=== PATIENT | female | born 1970 | race Caucasian/White ===

== ENCOUNTER → 2016-07-28 | Day surgery (SDC) | payer OTHER ==
[2016-07-26 13:21] VITALS: Ht 154.9 cm; Wt 61.8 kg
[~2016-07-28] VITALS: Ht 154.9 cm; Wt 61.8 kg
[~2016-07-28] MED LIST: CHOL100010 PO; LEVO25TA PO; LIDOCAINE HCL 2% 2 ML VIAL (20MG/ML) ONE; LINA1CAP PO; PROPOFOL IV EMULSION 10 MG/ML 20 ML VIAL IV ONE; SODIUM CHLORIDE 0.9% 500ML 500 ML IV ONE; SUMA50TA15 PO; VERA240T20 PO
--- NOTE | 2016-07-28 11:43 | Endo History and Physical ---
History & Physical Date of Service: Jul 28, 2016. Chief Complaint: Screening Referring Physician: Frederick History of Present Illness 46 yo CF who presents for screening colonoscopy. Past Medical History Hypertension Past Surgical History Hx Cardiac Surgery: No Hx Internal Defibrillator: No Hx Pacemaker: No Hx Abdominal Surgery: Yes (PARTIAL HYSTER, TUBAL LIGATION) Hx of Implantable Prosthesis: No Hx Post-Op Nausea and Vomiting: Yes Hx Cancer Surgery: No Hx Thoracic Surgery: No Hx Orthopedic: No Hx Urinary Tract Surgery: No Family History None Social History Smoking Status: Never Smoker Hx Substance Use: No Hx Alcohol Use: No Allergies Coded Allergies: BEE STING (Verified Allergy, Unknown, SWELLING AT SITE, 07/26/16) NO KNOWN DRUG ALLERGIES (Verified Allergy, Unknown, ., 07/26/16) Current Medications Reported Home Medications Medications Dose Route/Sig Max Daily Dose Days Date Category Linzess (Linaclotide) 145 Mcg Cap 1 Tab PO QPM 07/26/16 Reported Vitamin D (Cholecalciferol) 1,000 Unit Tab 1 Tab PO HS 07/26/16 Reported Synthroid (Levothyroxine Sodium) 25 Mcg Tab 25 Mcg PO QAM 07/26/16 Reported Calan Sr Ext Rel (Verapamil HCl) 240 Mg Tabcr 240 Mg PO HS 07/26/16 Reported Imitrex (Sumatriptan Succinate) 50 Mg Tab 50 Mg PO UD PRN 06/07/15 Reported Vital Signs Weight (Kilograms): 61.82 Height (Feet): 5 Height (Inches): 1 Date Time Temp Pulse Resp B/P Pulse Ox O2 Delivery O2 Flow Rate FiO2 07/28/16 11:07 36.7 69 18 162/86 99 Room Air Physical Exam General Appearance: WD/WN, no apparent distress Respiratory/Chest: Auscultation: breath sounds normal Cardiovascular: Heart Auscultation: RRR Abdomen: Bowel Sounds: normal Inspection & Palpation: soft, non-distended, no tenderness, guarding & rebound Assessment and Plan Assessment: 46 yo CF who presents for screening colonoscopy. Plan: Proceed with colonoscopy.
--- NOTE | 2016-07-28 12:06 | GI REPORT ---
Procedure Date: 07/28/2016 11:49 AM Procedure: Colonoscopy Indications: Screening for colorectal malignant neoplasm Medicines: Monitored Anesthesia Care Complications: No immediate complications. Estimated Blood Loss: Estimated blood loss: none. Procedure: Pre-Anesthesia Assessment: - Prior to the procedure, a History and Physical was performed, and patient medications and allergies were reviewed. The patient's tolerance of previous anesthesia was also reviewed. The risks and benefits of the procedure and the sedation options and risks were discussed with the patient. All questions were answered, and informed consent was obtained. Prior Anticoagulants: The patient has taken no previous anticoagulant or antiplatelet agents. ASA Grade Assessment: I - A normal, healthy patient. After reviewing the risks and benefits, the patient was deemed in satisfactory condition to undergo the procedure. After I obtained informed consent, the scope was passed under direct vision. Throughout the procedure, the patient's blood pressure, pulse, and oxygen saturations were monitored continuously. The scope was introduced through the anus and advanced to the terminal ileum. The colonoscopy was performed without difficulty. The patient tolerated the procedure well. The quality of the bowel preparation was good. The terminal ileum, ileocecal valve, appendiceal orifice, and rectum were photographed. Findings: Non-bleeding internal hemorrhoids were found during retroflexion. The hemorrhoids were small. The exam was otherwise without abnormality. Impression: - Non-bleeding internal hemorrhoids. - The examination was otherwise normal. - No specimens collected. Recommendation: - Resume previous diet. - Continue present medications. - Repeat colonoscopy in 10 years for surveillance. - Return to primary care physician as previously scheduled. Jer Feliciano DO 07/28/2016 12:05:36 PM This report has been signed electronically. Note Initiated On: 07/28/2016 11:49 AM
--- NOTE | 2016-07-28 12:06 | Discharge Instructions ---
Endoscopy Patient Instructions Date / Procedure(s) Performed Jul 28, 2016. Colonoscopy Allergy Information Coded Allergies: BEE STING (Verified Allergy, Unknown, SWELLING AT SITE, 07/26/16) NO KNOWN DRUG ALLERGIES (Verified Allergy, Unknown, ., 07/26/16) Discharge Date / Findings Jul 28, 2016. Internal hemorrhoids Medication Instructions OK to resume all medications today as prescribed Reported Home Medications Medications Dose Route/Sig Max Daily Dose Days Date Category Linzess (Linaclotide) 145 Mcg Cap 1 Tab PO QPM 07/26/16 Reported Vitamin D (Cholecalciferol) 1,000 Unit Tab 1 Tab PO HS 07/26/16 Reported Synthroid (Levothyroxine Sodium) 25 Mcg Tab 25 Mcg PO QAM 07/26/16 Reported Calan Sr Ext Rel (Verapamil HCl) 240 Mg Tabcr 240 Mg PO HS 07/26/16 Reported Imitrex (Sumatriptan Succinate) 50 Mg Tab 50 Mg PO UD PRN 06/07/15 Reported Provider Instructions Activity Restrictions - No exercising or heavy lifting for 24 hours. - Do not drink alcohol the day of the procedure. - Do not drive a car or operate machinery until the day after the procedure. - Do not make any important decisions or sign important papers in 24 hours after the procedure. Following Day: - Return to full activity which may include returning to work/school. Diet Start your diet with liquids and light foods (jello, soup, juice, toast). Then eat your usual diet if not nauseated. Treatment For Common After Affects For mild abdominal pain, bloating, or excessive gas: - Rest - Eat lightly - Lie on right side Follow-Up Information Follow-up with [facility] as scheduled Anesthesia Information What You Should Know You have had a procedure that required some medicine to reduce anxiety and discomfort. This treatment is called moderate sedation. After receiving the treatment, you may be sleepy, but you will be able to breathe on your own. The effects of the treatment may last for several hours. Follow these instructions along with Activity/Diet recommendations noted above: * Do NOT do anything where dizziness or clumsiness would be dangerous. * Rest quietly at home today, then you can be up and about tomorrow. * Have a responsible person stay with you the rest of today. * You may have had an I.V. today. If so, you may take the dressing off later today. Recommendations Call your doctor if: * Trouble breathing * Continuous vomiting for more than 24 hours * Temperature above 101 degrees * Severe abdominal pain or bloating * Pain not relieved by pain medicine ordered * There is increased drainage or redness from any incision * A large amount of rectal bleeding greater than 2-3 tablespoons. (If you had a polyp/s removed or have hemorrhoids, a small amount of blood - from the rectum is to be expected.) * You have any unanswered questions or concerns. IN THE EVENT OF A SERIOUS EMERGENCY, GO TO THE NEAREST EMERGENCY ROOM Your discharge instructions were prepared by provider Jer Feliciano. Patient Instructions Signature Page Dee Vasquez Patient (or Guardian) Signature/Date: I have read and understand the instructions given to me by my caregivers. Caregiver/RN/Doctor Signature/Date: The above-named patient and/or guardian has received patient instructions on this date. + Original Patient Signature Page (only) stays with chart. Please make copy for patient.
--- NOTE | 2016-07-28 12:17 | Anesthesiology Progress Note ---
Anesthesia Post Op Note Date & Time Jul 28, 2016 at 12:16 Vital Signs Pain Intensity: 4 Vital Signs Past 12 Hours Date Time Temp Pulse Resp B/P Pulse Ox O2 Delivery O2 Flow Rate FiO2 07/28/16 11:07 36.7 69 18 162/86 99 Room Air Notes Mental Status: alert / awake / arousable, participated in evaluation Pt Amnestic to Procedure: Yes Nausea / Vomiting: adequately controlled Pain: adequately controlled Airway Patency, RR, SpO2: stable & adequate BP & HR: stable & adequate Hydration State: stable & adequate Anesthetic Complications: no major complications apparent
[2016-07-28 12:48] VITALS: BP 167/80; PULSE 72; O2SAT 99
== END | disposition home or self-care (01) ==
LOC: C.GI 10:30
PROVIDERS: ATTEND Internal Medicine
DX: Z12.11 Encounter for screening for malignant neoplasm of colon (principal); K64.8 Other hemorrhoids; I10 Essential (primary) hypertension; Z90.711 Acquired absence of uterus with remaining cervical stump; Z98.51 Tubal ligation status; Z68.26 Body mass index [BMI] 26.0-26.9, adult

== ENCOUNTER → 2016-08-28 | Outpatient (CLI) | payer OTHER ==
[~2016-08-28] MED LIST changes: -LIDOCAINE HCL 2% 2 ML VIAL (20MG/ML) ONE; -PROPOFOL IV EMULSION 10 MG/ML 20 ML VIAL IV ONE; -SODIUM CHLORIDE 0.9% 500ML 500 ML IV ONE
[2016-08-28 15:06] LABS: BLOOD UREA NITROGEN 13 mg/dl (7-18); CALCIUM 8.4 mg/dl (8.5-10.1); CARBON DIOXIDE 27 mmol/L (21-32); CHLORIDE 106 mmol/L (98-107); CREATININE 0.56 mg/dl (0.60-1.20); GLUCOSE 101 mg/dl (70-99); POTASSIUM 3.1 mmol/L (3.5-5.1); SODIUM 142 mmol/L (136-145)
[2016-08-31 16:13] LABS: MICROSOMAL AB 20 IU/ML (<9)
== END | disposition home or self-care (01) ==
LOC: C.LAB1850 13:42
PROVIDERS: ATTEND Family Medicine
DX: E03.9 Hypothyroidism, unspecified (principal); E55.9 Vitamin D deficiency, unspecified; I10 Essential (primary) hypertension

== ENCOUNTER → 2016-10-24 | Outpatient (CLI) | payer OTHER ==
[2016-10-24 20:26] LABS: THYROID STIMULATING HORMONE 4.17 uIu/ml (0.300-4.500)
== END | disposition home or self-care (01) ==
LOC: C.LAB 19:39
PROVIDERS: ATTEND Family Medicine
DX: E03.9 Hypothyroidism, unspecified (principal); E06.3 Autoimmune thyroiditis

== ENCOUNTER → 2016-12-08 | Outpatient (CLI) | payer OTHER ==
--- NOTE | 2016-12-08 16:30 | MAMMOGRAPHY REPORT ---
UNILATERAL LEFT DIGITAL DIAGNOSTIC MAMMOGRAM TOMOSYNTHESIS WITH CAD: 12/08/2016 CLINICAL HISTORY: Six-month follow-up of left breast calcifications. The patient had a prior palpab le left breast lump March 2016. On questioning today, the patient reports that she no longer fe els the lump. TECHNIQUE: Breast tomosynthesis in addition to standard 2D mammography was performed. Current study was also evaluated with a Computer Aided Detection (CAD) system. Left CC and MLO 2-D and tomosynth esis images and spot magnification left CC and ML views were obtained. COMPARISON: Comparison is made to exams dated: 04/18/2016 ultrasound, 04/18/2016 mammogram, 5 mammogram, and 05/28/2015 mammogram - [facility]. BREAST COMPOSITION: The tissue of the left breast is heterogeneously dense, which may obscure small masses. FINDINGS: Spot magnification views of the left breast demonstrate a few loosely grouped benign-appe aring calcifications in the left medial breast at approximately 9:00. The calcifications are not si gnificantly changed compared to the March 2016 exam, although one of the calcifications is more coarsened and more benign-appearing. A few other scattered benign-appearing punctate calcifications are again noted within the left breast on the magnified views. No suspicious cluster of micro-calc ifications is seen. The remainder of the left breast is stable compared to prior exams, without suspicious masses, calci fications, or areas of architectural distortion noted. IMPRESSION: ACR BI-RADS CATEGORY 2: BENIGN Benign-appearing loosely grouped calcifications in the left 9:00 breast are stable compared to the p rior exam and are considered benign. There is no mammographic evidence of malignancy. Return to [facility] mammogram screening schedule is recommended. The patient has been verbally notified of the resu lts. Approximately 10% of breast cancers are not detected with mammography. A negative mammographic repor t should not delay biopsy if a clinically suggestive mass is present. Zaida Mckinley M.D. /:12/08/2016 14:29:25 Assistant Athletic Trainer: Stephanie ROSENTHAL(Bert)(M), [facility] letter sent: Normal 1/2 BI-RADS Code: ACR BI-RADS Category 2: Benign
== END | disposition home or self-care (01) ==
LOC: C.MAMM 13:47
PROVIDERS: ATTEND Family Medicine
DX: R92.1 Mammographic calcification found on diagnostic imaging of breast (principal); E06.3 Autoimmune thyroiditis; E03.9 Hypothyroidism, unspecified

== ENCOUNTER → 2017-02-05 | Outpatient (CLI) | payer OTHER ==
[2017-02-05 18:58] LABS: BLOOD UREA NITROGEN 18 mg/dl (7-18); BUN/CREATININE RATIO 30.2 (10-20); CALCIUM 9.3 mg/dl (8.5-10.1); CARBON DIOXIDE 26 mmol/L (21-32); CHLORIDE 108 mmol/L (98-107); CREATININE 0.61 mg/dl (0.60-1.20); GLUCOSE 82 mg/dl (70-99); MAGNESIUM 2.1 mg/dl (1.8-2.4); POTASSIUM 3.8 mmol/L (3.5-5.1); SODIUM 141 mmol/L (136-145)
== END | disposition home or self-care (01) ==
LOC: C.LAB 17:34
PROVIDERS: ATTEND Nurse Practitioner Adult Health
DX: E87.6 Hypokalemia (principal); E06.3 Autoimmune thyroiditis

== ENCOUNTER → 2017-05-04 | Outpatient (CLI) | payer OTHER ==
[2017-05-04 17:30] LABS: BLOOD UREA NITROGEN 14 mg/dl (7-18); BUN/CREATININE RATIO 24.6 (10-20); CALCIUM 8.5 mg/dl (8.5-10.1); CARBON DIOXIDE 28 mmol/L (21-32); CHLORIDE 108 mmol/L (98-107); CREATININE 0.56 mg/dl (0.60-1.20); GLUCOSE 73 mg/dl (70-99); POTASSIUM 3.4 mmol/L (3.5-5.1); SODIUM 142 mmol/L (136-145)
== END | disposition home or self-care (01) ==
LOC: C.LABPBG 14:46
PROVIDERS: ATTEND Family Medicine
DX: E03.9 Hypothyroidism, unspecified (principal); R23.2 Flushing; I10 Essential (primary) hypertension

== ENCOUNTER → 2017-06-29 | Outpatient (CLI) | payer OTHER | END | disposition home or self-care (01) | LOC: C.LABPBG 11:15 | PROVIDERS: ATTEND Family Medicine | DX: E03.9 Hypothyroidism, unspecified (principal) ==

== ENCOUNTER → 2017-08-03 | Outpatient (CLI) | payer OTHER ==
--- NOTE | 2017-08-06 14:47 | MAMMOGRAPHY REPORT ---
BILATERAL DIGITAL SCREENING MAMMOGRAM TOMOSYNTHESIS WITH CAD: 08/03/2017 CLINICAL HISTORY: Routine screening. TECHNIQUE: Breast tomosynthesis in addition to standard 2D mammography was performed. Current study was also evaluated with a Computer Aided Detection (CAD) system. COMPARISON: Comparison is made to exams dated: 12/08/2016 mammogram, 04/18/2016 ultrasound, 04/18/2016 mammogram, 05/28/2015 mammogram, and 05/07/2015 mammogram - [facility]. BREAST COMPOSITION: The tissue of both breasts is heterogeneously dense, which may obscure small mas ses. FINDINGS: No suspicious masses, calcifications, or areas of architectural distortion are noted in ei ther breast. There has been no significant interval change compared to prior exams. Bilateral benign -appearing calcifications are not significantly changed. Post surgical changes are again noted withi n the right central breast. IMPRESSION: ACR BI-RADS CATEGORY 2: BENIGN There is no mammographic evidence of malignancy. A 1 year screening mammogram is recommended. The pa tient will receive written notification of the results. Approximately 10% of breast cancers are not detected with mammography. A negative mammographic report should not delay biopsy if a clinically suggestive mass is present. Zaida Mckinley M.D. /:08/03/2017 16:08:35 Ammunition Supervisor: Luis ROSENTHAL(Bert)(M), [facility] letter sent: Normal 1/2 BI-RADS Code: ACR BI-RADS Category 2: Benign
== END | disposition home or self-care (01) ==
LOC: C.MAMM 13:34
PROVIDERS: ATTEND Family Medicine
DX: Z12.31 Encounter for screening mammogram for malignant neoplasm of breast (principal)

== ENCOUNTER → 2017-11-14 | Outpatient (CLI) | payer OTHER ==
[2017-11-14 13:40] LABS: BLOOD UREA NITROGEN 13 mg/dl (7-18); CALCIUM 8.8 mg/dl (8.5-10.1); CARBON DIOXIDE 26 mmol/L (21-32); CREATININE 0.55 mg/dl (0.60-1.20); GLUCOSE 85 mg/dl (70-99); POTASSIUM 4.1 mmol/L (3.5-5.1); SODIUM 138 mmol/L (136-145)
[2017-11-14 13:45] LABS: CHOLESTEROL 185 mg/dl (0-200); LDL CHOLESTEROL CALCULATED 105 mg/dl
== END | disposition home or self-care (01) ==
LOC: C.LABPBG 07:30
PROVIDERS: ATTEND Family Medicine
DX: Z13.220 Encounter for screening for lipoid disorders (principal); I10 Essential (primary) hypertension